=== PATIENT | female | born 1960 | race Caucasian/White ===

== ENCOUNTER 2017-03-23 05:56 | Emergency (ER) | payer BC ==
--- NOTE | 2017-03-23 06:11 | Emergency Department Record ---
History of Present Illness - General Chief complaint: Pain Stated complaint: Rt. Hip Pain Time Seen by Provider: 03/23/17 06:04 Source: Patient Mode of Arrival: Wheelchair Limitations: No limitations - History of Present Illness Initial comments: The patient is here due to developing R hip pain and groin pain over the last 12 hours. The onset was gradual and the patient denies any recent injury, trauma or illness. She has a hx of hip bursitis but this is different. There is no hx of AP, nausea, vomiting, fever or dysuria. The patient describes the pain as starting in her R groin and radiating around to the back of her hip. There is no reported leg numbness, tingling or weakness. MD Complaint: Joint pain Onset/Timin -: Days(s) Location: Right, Other History of Same: Yes Radiation: Other Severity scale (1-10): 7 Quality: Other Consistency: Constant Improves with: Nothing - Related Data Home Medications Medication Instructions Recorded Confirmed Last Taken Estrogen,Con/M-Progest Acet 1 tab PO DAILY 03/23/17 03/23/17 03/22/17 [Prempro 0.3 mg-1.5 mg Tablet] Naproxen Sodium [Naproxen Sodium] 550 mg PO DAILY 03/23/17 03/23/17 03/22/17 Triamterene/Hydrochlorothiazid 1 tab PO DAILY 03/23/17 03/23/17 03/22/17 [Triamterene-Hctz 37.5-25 mg Cp] Allergies Allergy/AdvReac Type Severity Reaction Status Date / Time No Known Drug Allergies Allergy Verified 03/23/17 05:59 Travel Screening - Travel/Exposure Within Last 30 Days Have you traveled within the last 30 days?: No - Travel Symptoms Symptom Screening: None Review of Systems Constitutional: Denies: Chills, Fever Eyes: Denies: Eye discharge ENT: Denies: Congestion Respiratory: Denies: Cough, Dyspnea Past Medical History - SOCIAL HISTORY Smoking Status: Former smoker Alcohol Use: None Drug Use: None - RESPIRATORY Hx Respiratory Disorders: No - CARDIOVASCULAR Hx Cardio Disorders: No - NEURO Hx Neuro Disorders: Yes Hx Headaches: Yes (migraine) - GI Hx GI Disorders: No - Hx Genitourinary Disorders: No - ENDOCRINE Hx Endocrine Disorders: Yes Hx Thyroid Disease: Yes - MUSCULOSKELETAL Hx Musculoskeletal Disorders: Yes Comment:: Bursitis bilateral hips - PSYCH Hx Psych Problems: No - HEMATOLOGY/ONCOLOGY Hx Hematology/Oncology Disorders: No Family Medical History Any Significant Family History?: No Family Hx Comment (NOT TO BE USED IN PLACE OF ITEMS BELOW): denies Physical Exam - General General Appearance: Alert, Cooperative, No acute distress, Mild distress - Head Head exam: Atraumatic, Normocephalic, Normal inspection - Eye Eye exam: Normal appearance, PERRL - Neck Neck exam: Normal inspection, Full ROM. negative: Tenderness - Respiratory Respiratory exam: Normal lung sounds bilaterally. negative: Respiratory distress - Cardiovascular Cardiovascular Exam: Regular rate, Normal rhythm, Normal heart sounds - GI/Abdominal GI/Abdominal exam: Soft, Normal bowel sounds. negative: Guarding, Rigid, Tenderness - Extremities Extremities exam: Normal inspection, Normal capillary refill, Tenderness (There is mild tenderness to the R hip anteriorly.), Other (The R leg is NVI.). negative: Full ROM (decreased full ROM of the R hip due to pain.) Course Vital Signs 03/23/17 06:03 Temperature 97.9 F Pulse Rate [ 74 Pulse Ox Probe] Respiratory 16 Rate Blood Pressure 139/83 [Left Arm] Pulse Ox 96 - Reevaluation(s) Reevaluation #1: The patient is at xray at this time. Her pain was improved with the pain medicines. Her care will be turned over to Dr. Martinez due to shift change. 03/23/17 07:04 Medical Decision Making - Lab Data Result diagrams: 03/23/17 06:30 03/23/17 06:30 Disposition Forms: Patient Portal Access
[2017-03-23] MEDS: ORPHENADRINE CITRATE 60MG/2ML VIAL IM ONE (06:30)
[2017-03-23] MEDS: KETOROLAC 30 MG/ML VIAL IVP ONE (06:30)
[2017-03-23] MEDS: 0.9 % SODIUM CHLORIDE 1,000 ML BAG IV ONE (06:30)
[2017-03-23 06:43] LABS: BASO % 0.9 % (0-6); EOS % 2.4 % (0-6); GRAN % 69.7 % (47-80); HEMATOCRIT 43.6 % (35.0-47.0); HEMOGLOBIN 13.9 gm/dl (11.6-16.0); LYMPH % 20.7 % (16-45); MEAN CELL VOLUME 83.7 fl (81-97); MEAN CORPUSCULAR HEMOGLOBIN 26.7 pg (27-33); MEAN CORPUSCULAR HGB CONC 31.9 g/dl (32-36); MEAN PLATELET VOLUME 9.8 fl (7.4-10.4); MONO % 6.3 % (0-9); PLATELET COUNT 353 K/uL (130-400); RED BLOOD COUNT 5.21 M/uL (3.80-5.40); RED CELL DISTRIBUTION WIDTH 14.4 % (11.5-14.5); WHITE BLOOD COUNT W/O DIFF 11.1 K/uL (4.2-12.2)
[2017-03-23] MEDS: HYDROMORPHONE HCL 1 MG/ML CPJ IVP ONE ×3 (06:47→10:49)
[2017-03-23 06:55] LABS: ANION GAP 10.5 (7-16); BLOOD UREA NITROGEN 16 mg/dL (7-17); CARBON DIOXIDE 27.5 mmol/L (22-30); CREATININE 0.8 mg/dL (0.52-1.04); EST GLOMERULAR FILTRATION RATE > 60 ml/min; GLUCOSE,RANDOM 107 mg/dL (70-110)
[2017-03-23 08:05] LABS: URINE APPEARANCE CLEAR; URINE BILIRUBIN NEGATIVE (NEGATIVE); URINE BLOOD MODERATE (NEGATIVE); URINE COLOR YELLOW; URINE GLUCOSE (UA) NEGATIVE (NEGATIVE); URINE KETONE NEGATIVE (NEGATIVE); URINE LEUKOCYTE ESTERASE NEGATIVE (NEGATIVE); URINE NITRITE NEGATIVE (NEGATIVE); URINE PROTEIN NEGATIVE (NEGATIVE); URINE UROBILINOGEN 0.2 E.U./dL (0.20 - 1.00)
[2017-03-23 08:20] LABS: URINE WBC NONE SEEN (0-2/hpf)
--- NOTE | 2017-03-23 10:57 | Emergency Department Record ---
History of Present Illness - General Chief complaint: Pain Stated complaint: Rt. Hip Pain Time Seen by Provider: 03/23/17 06:04 Source: Patient Mode of Arrival: Wheelchair Limitations: No limitations - History of Present Illness Onset/Timin -: Days(s) Location: Right, Other History of Same: Yes Radiation: Other Severity scale (1-10): 7 Quality: Other Consistency: Constant Improves with: Nothing - Related Data Home Medications Medication Instructions Recorded Confirmed Last Taken Estrogen,Con/M-Progest Acet 1 tab PO DAILY 03/23/17 03/23/17 03/22/17 [Prempro 0.3 mg-1.5 mg Tablet] Naproxen Sodium [Naproxen Sodium] 550 mg PO DAILY 03/23/17 03/23/17 03/22/17 Triamterene/Hydrochlorothiazid 1 tab PO DAILY 03/23/17 03/23/17 03/22/17 [Triamterene-Hctz 37.5-25 mg Cp] Previous Rx's Medication Instructions Recorded Cyclobenzaprine HCl [Flexeril] 10 mg PO TID #10 tablet 03/23/17 Hydrocodone/Acetaminophen [[place] 1 tab PO Q6H PRN #10 tab 03/23/17 5mg/325mg] Ibuprofen [Motrin 600Mg] 600 mg PO Q6H #20 tablet 03/23/17 Allergies Allergy/AdvReac Type Severity Reaction Status Date / Time No Known Drug Allergies Allergy Verified 03/23/17 05:59 Travel Screening - Travel/Exposure Within Last 30 Days Have you traveled within the last 30 days?: No - Travel Symptoms Symptom Screening: None Review of Systems Constitutional: Denies: Chills, Fever Eyes: Denies: Eye discharge ENT: Denies: Congestion Respiratory: Denies: Cough, Dyspnea Past Medical History - SOCIAL HISTORY Smoking Status: Former smoker Alcohol Use: None Drug Use: None - RESPIRATORY Hx Respiratory Disorders: No - CARDIOVASCULAR Hx Cardio Disorders: No - NEURO Hx Neuro Disorders: Yes Hx Headaches: Yes (migraine) - GI Hx GI Disorders: No - Hx Genitourinary Disorders: No - ENDOCRINE Hx Endocrine Disorders: Yes Hx Thyroid Disease: Yes - MUSCULOSKELETAL Hx Musculoskeletal Disorders: Yes Comment:: Bursitis bilateral hips - PSYCH Hx Psych Problems: No - HEMATOLOGY/ONCOLOGY Hx Hematology/Oncology Disorders: No Family Medical History Any Significant Family History?: No Family Hx Comment (NOT TO BE USED IN PLACE OF ITEMS BELOW): denies Physical Exam - General Limitations: No limitations Course Vital Signs 03/23/17 03/23/17 03/23/17 06:03 06:53 09:31 Temperature 97.9 F Pulse Rate [ 74 85 82 Pulse Ox Probe] Respiratory 16 22 18 Rate Blood Pressure 139/83 135/84 [Left Arm] Blood Pressure 133/75 [Right Arm] Pulse Ox 96 95 97 - Reevaluation(s) Reevaluation #1: 03/23/17 10:50 pt had neg xrays. pt reassessed and is tender in r inguinal area. ct obtained which is neg. Medical Decision Making - Lab Data Result diagrams: 03/23/17 06:30 03/23/17 06:30 Lab Results 03/23/17 03/23/17 03/23/17 Range/Units 06:30 06:30 06:30 WBC 11.1 (4.2-12.2) K/uL RBC 5.21 (3.80-5.40) M/uL Hgb 13.9 (11.6-16.0) gm/dl Hct 43.6 (35.0-47.0) % MCV 83.7 (81-97) fl MCH 26.7 L (27-33) pg MCHC 31.9 L (32-36) g/dl RDW 14.4 (11.5-14.5) % Plt Count 353 (130-400) K/uL MPV 9.8 (7.4-10.4) fl Gran % 69.7 (47-80) % Lymphocytes % 20.7 (16-45) % Monocytes % 6.3 (0-9) % Eosinophils % 2.4 (0-6) % Basophils % 0.9 (0-6) % ESR (0-30) mm/hr D-Dimer (0-0.59) mg/L FEU Sodium 140 (136-145) mmol/L Potassium 3.4 L (3.5-5.1) mmol/L Chloride 102 (98-107) mmol/L Carbon Dioxide 27.5 (22-30) mmol/L Anion Gap 10.5 (7-16) BUN 16 (7-17) mg/dL Creatinine 0.8 (0.52-1.04) mg/dL Estimated GFR > 60 ml/min Random Glucose 107 (70-110) mg/dL Calcium 8.8 (8.5-10.1) mg/dL C-Reactive Protein 1.5 H (0.0-0.9) mg/dL Urine Color Urine Appearance Urine pH (5.0-8.0) Ur Specific [place] (1.002-1.030) Urine Protein (NEGATIVE) Urine Glucose (UA) (NEGATIVE) Urine Ketones (NEGATIVE) Urine Blood (NEGATIVE) Urine Nitrite (NEGATIVE) Urine Bilirubin (NEGATIVE) Urine Urobilinogen (0.20 - 1.00) E.U./dL Ur Leukocyte Esterase (NEGATIVE) Urine RBC (NONE SEEN) Urine WBC (0-2/hpf) Ur Epithelial Cells (FEW) 03/23/17 03/23/17 03/23/17 Range/Units 06:30 06:30 07:30 WBC (4.2-12.2) K/uL RBC (3.80-5.40) M/uL Hgb (11.6-16.0) gm/dl Hct (35.0-47.0) % MCV (81-97) fl MCH (27-33) pg MCHC (32-36) g/dl RDW (11.5-14.5) % Plt Count (130-400) K/uL MPV (7.4-10.4) fl Gran % (47-80) % Lymphocytes % (16-45) % Monocytes % (0-9) % Eosinophils % (0-6) % Basophils % (0-6) % ESR 10 (0-30) mm/hr D-Dimer 0.24 (0-0.59) mg/L FEU Sodium (136-145) mmol/L Potassium (3.5-5.1) mmol/L Chloride (98-107) mmol/L Carbon Dioxide (22-30) mmol/L Anion Gap (7-16) BUN (7-17) mg/dL Creatinine (0.52-1.04) mg/dL Estimated GFR ml/min Random Glucose (70-110) mg/dL Calcium (8.5-10.1) mg/dL C-Reactive Protein (0.0-0.9) mg/dL Urine Color Yellow Urine Appearance Clear Urine pH 7.5 (5.0-8.0) Ur Specific [place] 1.015 (1.002-1.030) Urine Protein Negative (NEGATIVE) Urine Glucose (UA) Negative (NEGATIVE) Urine Ketones Negative (NEGATIVE) Urine Blood Moderate (NEGATIVE) Urine Nitrite Negative (NEGATIVE) Urine Bilirubin Negative (NEGATIVE) Urine Urobilinogen 0.2 (0.20 - 1.00) E.U./dL Ur Leukocyte Esterase Negative (NEGATIVE) Urine RBC 7 - 10 (NONE SEEN) Urine WBC None seen (0-2/hpf) Ur Epithelial Cells 3 - 6 (FEW) Disposition Disposition: Discharge Clinical Impression: Right groin pain Radiculopathy Qualifiers: Spinal region: lumbosacral Qualified Code(s): M54.17 - Radiculopathy, lumbosacral region Disposition: Home, Self-Care Condition: (1) Good Instructions: Groin Pain (ED), Lumbar Radiculopathy (ED) Additional Instructions: follow up with family doctor in 1-3 days.. return sooner if worse. no lifting greater then 5 pounds for 5 days. Prescriptions: Cyclobenzaprine HCl [Flexeril] 10 mg PO TID #10 tablet Ibuprofen [Motrin 600Mg] 600 mg PO Q6H #20 tablet Hydrocodone/Acetaminophen [[place] 5mg/325mg] 1 tab PO Q6H PRN #10 tab PRN Reason: Pain - General Forms: Patient Portal Access
--- NOTE | 2017-03-24 13:45 | RADIOLOGY REPORT ---
EXAM: RIGHT HIP, THREE VIEWS HISTORY: ACUTE RIGHT HIP PAIN. TECHNIQUE: Three views of the right hip were obtained. Comparison: Right hip 07/16/14. FINDINGS: The sacroiliac joints are unremarkable. Mild osteoarthritic change of the femoroacetabular joints with small marginal osteophytes. No fracture. IMPRESSION: MILD OSTEOARTHRITIC CHANGE OF THE FEMOROACETABULAR JOINTS. NO ACUTE PROCESS OF THE RIGHT HIP. NO INTERVAL CHANGE. JOB NUMBER: [id number] MTDD
--- NOTE | 2017-03-24 13:48 | RADIOLOGY REPORT ---
EXAM: LUMBAR SPINE, THREE VIEWS HISTORY: ACUTE RIGHT HIP PAIN. TECHNIQUE: Three views of the lumbar spine were obtained. Comparison: None. FINDINGS: Five lumbar segments. 4 mm of anterolisthesis of L4 upon L5 due to facet arthropathy. Mild diffuse disease. No acute fracture. IMPRESSION: 1. NO ACUTE PROCESS OF THE LUMBAR SPINE. 2. 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 3. MILD DIFFUSE DEGENERATIVE DISK DISEASE. JOB NUMBER: [id number] [facility]
--- NOTE | 2017-03-24 13:53 | CT SCAN REPORT ---
EXAM: PELVIS CT WITH IV CONTRAST HISTORY: ACUTE RIGHT LOWER QUADRANT ABDOMINAL PAIN AND PELVIC PAIN. PRIOR OOPHORECTOMY. TECHNIQUE: Contiguous axial images from the L3 level to the proximal femora were obtained after the uneventful intravenous administration of 100 ml of Omnipaque 300. Comparison: Right hip 03/23/17. FINDINGS: The visualized loops of small and large bowel are of normal caliber. Normal appendix. Extensive colonic diverticulosis with no evidence of acute diverticulitis. Advanced calcification of the abdominal aorta. The uterus is present. No pelvic mass. No free intraperitoneal fluid or adenopathy in the pelvis. No inguinal hernia identified. Tiny inguinal lymph nodes bilaterally. The right external iliac and the right common femoral vessels are patent. No space occupying lesion. The extrapelvic musculature is symmetric. No lytic or blastic osseous lesions. IMPRESSION: 1. NO ACUTE PROCESS OF THE PELVIS IDENTIFIED. 2. COLONIC DIVERTICULOSIS. 3. MARKED AORTIC CALCIFICATION. JOB NUMBER: [id number] MTDD
== END 2017-03-23 11:32 | disposition home or self-care (01) ==
LOC: ER 05:56
DX: M54.17 Radiculopathy, lumbosacral region (principal); R10.31 Right lower quadrant pain; M25.551 Pain in right hip; R42 Dizziness and giddiness; R11.0 Nausea; R61 Generalized hyperhidrosis
CPT/HCPCS: 72100; 72193; 80048; 81001; 85025; 85379; 85651; 86140; 96372; 96374; 96375; 96376; 99284; J1170; J1885; J2360; J7030